=== PATIENT | male | born 1965 | race Caucasian/White ===

== ENCOUNTER → 2020-01-24 | Outpatient (CLI) | payer BC | END | disposition home or self-care (01) | LOC: RAD 08:37 | PROVIDERS: ATTEND Psychiatry & Neurology Neurology | DX: R42 Dizziness and giddiness (principal); H53.459 Other localized visual field defect, unspecified eye | CPT/HCPCS: 95816 ==

== ENCOUNTER 2023-08-09 10:30 | Day surgery (SDC) | payer BC ==
[2023-08-02 16:36] LABS: BILIRUBIN,URINE NEGATIVE (Neg); CLARITY,URINE CLEAR (Clear); COLOR,URINE YELLOW (Yellow); GLUCOSE, URINE NEGATIVE (Neg); KETONES,URINE NEGATIVE (Neg); LEUKOCYTE ESTERASE ,URINE NEGATIVE (Neg); NITRITES, URINE NEGATIVE (Neg); OCCULT BLOOD,URINE NEGATIVE (Neg); PH,URINE 6.5 (4.8-8.0); PROTEIN,URINE NEGATIVE (Neg); UROBILINOGEN,URINE 0.2 E.U/dL (0.2-1.0)
[2023-08-02 16:38] LABS: BASOPHILS % (AUTO) 0.8 % (0-1); EOSINOPHILS # (AUTO) 0.1 X10'3 (0-0.9); LYMPHOCYTES # (AUTO) 1.1 X10'3 (1.1-4.8); MEAN CORPUSCULAR HEMOGLOBIN 31.6 PG (27.0-31.0); MEAN PLATELET VOLUME 9.6 FL (7.4-10.4); MONOCYTES # (AUTO) 0.5 X10'3 (0-0.9); NEUTROPHILS # (AUTO) 2.9 X10'3 (1.8-7.7); PRE OP WHITE BLOOD COUNT 4.7 10'3 (4.8-10.8); RED CELL DISTRIBUTION WIDTH 13.4 % (11.5-14.5)
[2023-08-02 16:41] LABS: EOSINOPHILS % (AUTO) 2.6 % (0-6); LYMPHOCYTES % (AUTO) 23.4 % (21-51); MEAN CORPUSCULAR HGB CONC 34.4 g/dL (33.0-36.5); MEAN CORPUSCULAR VOLUME 91.9 FL (78-98); MONOCYTES % (AUTO) 11.3 % (2-12); NEUTROPHILS % (AUTO) 61.9 % (42-75); PRE OP HEMATOCRIT 45.7 % (42.0-52.0); PRE OP HEMOGLOBIN 15.7 g/dL (14.0-17.9); PRE OP PLATELET COUNT 244 X10'3 (140-440); RED BLOOD COUNT 4.98 X10'6 (4.70-6.10)
[2023-08-02 16:45] LABS: UA COLLECTION TYPE NON-SPECIFIED
[2023-08-02 16:51] LABS: ALBUMIN 3.9 G/DL (3.4-5.0); ALBUMIN/GLOBULIN RATIO 1.1 (1.1-1.5); ALKALINE PHOSPHATASE 62 IU/L (46-116); BLOOD UREA NITROGEN 23 MG/DL (7-18); BUN/CREATININE RATIO 27.7 (10.0-20.0); CALCIUM 9.1 MG/DL (8.5-10.1); CHLORIDE 107 MMOL/L (99-107); CREATININE 0.83 MG/DL (0.60-1.10); PRE OP ALT 34 U/L (30-65); PRE OP ANION GAP 7 (8-16); PRE OP AST 18 U/L (10-37); PRE OP BILIRUB, TOTAL 0.4 MG/DL (0.0-1.0); PRE OP GLUCOSE 87 MG/DL (70-104); PRE OP POTASSIUM 4.2 MMOL/L (3.4-5.1); PRE OP SODIUM 144 MMOL/L (135-145); TOTAL CARBON DIOXIDE 30.1 MMOL/L (24-32); TOTAL PROTEIN 7.4 G/DL (6.4-8.2); eGFR > 90 ML/MIN
[2023-08-09] VITALS (11 sets, daily range): BP systolic 111–163; BP diastolic 58–83; PULSE 64–86; RESP 13–18; TEMP 97.3; O2SAT 95–99
[~2023-08-09] VITALS: Ht 180.3 cm; Wt 90.4 kg
[2023-08-09] MEDS: clindamycin-Cleocin 900mg/D5W 50 ML IV ONE (05:30)
[~2023-08-09 10:30] MED LIST: CELE-148 PO; CLON1TAB12 PO; DOCUMENT DATE & TIME OF BETA-BLOCKER PO ONE; ESOM20CA PO; HYDR200T73 PO; LEFL10TA20 PO; MELATONIN; METAMUCIL; OMEG100037 PO; PROBIOTIC; PROP10TA10 PO; RIME75TA SL; ROSU5TAB12 PO; SEMA1PEN3 SUBCUT; SPIRULINA; TRAZ150T78 PO; UBID200C18 PO; VENL75CA61 PO; [UNRECOGNIZED DRUG - OTHER]
[2023-08-09] MEDS: famotidine 20mg tablet PO ONE (11:15)
[2023-08-09] MEDS: ringers solution, lacted 1,000 ML IV SCH (11:15)
[2023-08-09] MEDS ORDERED: morphine 2 MG/ML inj. syringe IV PRN (13:40)
[2023-08-09] MEDS ORDERED: morphine 4 MG/ML inj SYRINge IV PRN (13:40)
[2023-08-09] MEDS ORDERED: ringers solution, lacted 1,000 ML IV SCH ×2 (13:40→15:30)
[2023-08-09] MEDS ORDERED: ondansetron/PF 4mg/2ml inj IV PRN ×2 (13:40→15:30)
[2023-08-09] MEDS ORDERED: labetalol 20mg/4ml (5mg/ml) syringe IV PRN ×2 (13:40→15:30)
[2023-08-09] MEDS ORDERED: fentaNYL/PF 50MCG/1 ML 2ML syringe IV PRN ×2 (13:40)
[2023-08-09] MEDS ORDERED: hydrALAZINE 20mg/ml inj. IV PRN ×2 (13:40→15:30)
[2023-08-09] MEDS ORDERED: BUPIVAcaine 2.5mg/ml inj 50ml vial (contains preservative) ONE (15:11)
[2023-08-09] MEDS ORDERED: rocuronium 10mg/ml inj IV ONE (15:22)
[2023-08-09] MEDS ORDERED: sevoflurane 250ml liquid IH ONE (15:22)
[2023-08-09] MEDS ORDERED: dexamethasone sod phosphate 10mg/ml inj ONE (15:22)
[2023-08-09] MEDS ORDERED: propofol 10mg/ml 20ml vial IV ONE (15:22)
[2023-08-09] MEDS ORDERED: LIDOcaine 2% (20mg/ml) 5ml vial ONE (15:22)
[2023-08-09] MEDS ORDERED: fentaNYL /PF 50mcg/ml 5ml ampule ONE (15:23)
[2023-08-09] MEDS ORDERED: midazolam 1 mg/ML 2ml injection ONE (15:23)
[2023-08-09] MEDS ORDERED: proCHLORperazine 10 MG/2 ml inj IV PRN (15:30)
[2023-08-09] MEDS ORDERED: HYDROmorphone/PF 0.2 MG/ML SYRINGE IV PRN ×2 (15:30)
[2023-08-09] MEDS ORDERED: meperidine/PF 25mg/ml syringe IV PRN (15:30)
[2023-08-09] MEDS ORDERED: ondansetron/PF 4mg/2ml inj ONE (15:45)
[2023-08-09] MEDS: BUPIVAcaine/PF 2.5 mg/ml (0.25%) 30ml vial IJ ONE (16:10)
[2023-08-09] MEDS ORDERED: glycopyrrolate 0.2mg/ml inj ONE (16:34)
[2023-08-09] MEDS ORDERED: neostigmine methylsulfate 1 MG/ML 10ml vial ONE (16:34)
[2023-08-09] MEDS: acetaminophen 1,000mg/100ml IV 100 ML IV ONE (17:09)
[2023-08-09] MEDS: ketorolac trometh. 30mg/ml inj. IV ONE (17:09)
[2023-08-09] MEDS: morphine 4 MG/ML inj SYRINge IV PRN (17:09)
[2023-08-09] MEDS: morphine 2 MG/ML inj. syringe IV PRN (17:37)
[2023-08-09] MEDS ORDERED: LidoCAINE 2% Topical Jelly 11mL syringe MM ONE (19:10)
== END 2023-08-09 19:55 | disposition home or self-care (01) ==
LOC: PAS 10:30
PROVIDERS: ATTEND Surgery
DX: K40.90 Unilateral inguinal hernia, without obstruction or gangrene, not specified as recurrent (principal); K41.90 Unilateral femoral hernia, without obstruction or gangrene, not specified as recurrent; F41.9 Anxiety disorder, unspecified; G47.00 Insomnia, unspecified; F32.A Depression, unspecified; I10 Essential (primary) hypertension; G43.909 Migraine, unspecified, not intractable, without status migrainosus; M19.90 Unspecified osteoarthritis, unspecified site; E66.9 Obesity, unspecified; Z68.27 Body mass index [BMI] 27.0-27.9, adult; Z87.891 Personal history of nicotine dependence; Z88.0 Allergy status to penicillin; Z88.8 Allergy status to other drugs, medicaments and biological substances; Z98.890 Other specified postprocedural states; Z79.899 Other long term (current) drug therapy; Z80.0 Family history of malignant neoplasm of digestive organs
CPT/HCPCS: 49650; 80053; 81003; 82948; 85025; 93005; C1781; J0131; J1100; J1885; J2250; J2270; J2405; J2704; J2710; J3010; J3490; J7030; J7120; S2900; Z7506; Z7508; Z7512; A4215; A4314; A4618; C1758